=== PATIENT | male | born 1970 | race Caucasian/White ===

== ENCOUNTER → 2016-08-12 | Day surgery (SDC) | payer OTHER ==
[~2016-08-12] VITALS: Ht 175.3 cm; Wt 88.5 kg
--- NOTE | 2016-08-13 12:55 | Operative Report ---
Operative/Inv Procedure Report Surgery Date: 08/12/16 Name of Procedure: Release left carpal tunnel Pre-Operative Diagnosis: Carpal tunnel left Post-Operative Diagnosis: Same Estimated Blood Loss: less than 50ml Surgeon/Driver Starting Gate: JOHNY ESPAÑA MD Anesthesia: local monitored anesthesi Operative/Procedure Note Note: The patient was counseled in regards to the procedure the alternatives the risks and expected outcomes as well as to release symptomatically for carpal tunnel of long-standing nature. No guarantees were given in regards to the results. We talked about the risks which included but were not limited to infection bleeding pain definitely visible scarring possibly unsightly or symptomatic open wound was due to relief of the ligament as well as possible weakness in the hand may not be improved. Informed consent was signed. The extremity was marked and was taken to the operating room placed supine on the table Venodyne boots were placed. Intravenous sedation anesthesia was given and the left upper extremity was prepped and draped in usual sterile fashion. A proximal forearm cough was placed. Palmar incision was placed longitudinally brought down through the skin and subcutaneous tissue. The fascia was incised. The transverse carpal ligament was opened under direct vision and completely released pathology was seen. Wound was closed after irrigation as and was splinted
== END ==
LOC: STS 02:11
DX: G56.02 Carpal tunnel syndrome, left upper limb (principal); J45.909 Unspecified asthma, uncomplicated
CPT/HCPCS: J0690; J2250